=== PATIENT | female | born 1960 | race Caucasian/White ===

== ENCOUNTER 2023-03-24 16:32 | Emergency (ER) | payer OTHER, SELFPAY ==
--- NOTE | ~2023-03-24 | XR_ITS ---
EXAM: XR hip LT 2V w AP pelvis DATE: 03/24/2023 17:14 HISTORY: FELL BACKWARDS 03/21/23. HIT LT BUTTOCK ON WALL.BRUISING. . COMPARISON: None available. FINDINGS: Normal mineralization. No fracture or dislocation. No lytic or blastic lesion. Mild degene rative changes in the bilateral SI joints, hips, and pubic symphysis. Scattered pelvic enthesopathy. Moderate-severe lumbar degenerative disc disease. No erosion or periosteal change. Soft tissue contus ion over the left hip. IMPRESSION: No acute osseous finding in the pelvis or left hip. Reviewed, dictated and finalized at location K. [facility]
--- NOTE | 2023-03-24 16:34 | ED.BACK ---
HPI - Back Pain/Injury General Chief Complaint: Fall Stated Complaint: left side butt cheek injury Source: patient and RN notes reviewed Mode of arrival: ambulatory Limitations: no limitations History of Present Illness HPI Narrative: Patient is a 63-year-old female who presents to the [facility] with complaints left buttock pain. Patient states that she had a fall when she was picking up shoes on the when she bent over and got her feet caught. Patient states that she fell backwards and hit her left hip and buttock on the corner of the wall. Patient states that the bruising continues to get worse. She reports tenderness to the area. She denies any back or tailbone pain. She did not hit her head or lose consciousness during the fall. Related Data Home Medications Medication Instructions Recorded Confirmed buprenorphine 2 mg-naloxone 0.5 mg 1 film buccal DAILY 03/29/19 03/24/23 sublingual film (Suboxone) fluoxetine 20 mg capsule (Prozac) 20 mg PO DAILY 03/29/19 03/24/23 Allergies Allergy/AdvReac Type Severity Reaction Status Date / Time No Known Allergies Allergy Verified 03/24/23 16:47 Review of Systems Review of Systems: CONSTITUTIONAL: Denies fever, chills, or sweats. EYES: Denies visual changes, redness, or discharge. ENT: Denies otalgia and sore throat CARDIOVASCULAR: Denies chest pain, palpitations, or edema. RESPIRATORY: Denies cough or dyspnea. GASTROINTESTINAL: Denies abdominal pain, nausea, vomiting, or diarrhea. GENITOURINARY: Denies dysuria or hematuria. SKIN: Denies rash or itching. Bruising to left buttock. MUSCULOSKELETAL: Denies back pain or myalgia. Left hip and buttock pain. NEUROLOGIC: Denies headache, numbness, or weakness. Pertinent positives per HPI. [facility] Past Medical History Medical History Anxiety Depression Surgical History Surgical History H/O: hysterectomy History of cholecystectomy Social History Social History Smoking status: Former smoker Substance use: former Substance use type: opiates Comments At the time of my signature, I reviewed and agree with the nursing past medical, surgical, social, and family history. There is no relevant family history pertinent to the patient complaint. Exam Narrative: GENERAL: This is a well-nourished, well-developed patient, in no apparent distress. HEAD: normocephalic, atraumatic. EYES: PERRL. Sclera clear/white. Vision is grossly intact. EARS: External ears normal, auditory canals clear and without drainage, TMs normal without perforation. Hearing grossly intact. NOSE: External nose normal with no obvious nasal discharge, nares without redness, no rhinorrhea. THROAT: Mucous membranes moist, posterior pharynx clear. NECK: Neck supple, non-tender without lymphadenopathy, masses or thyromegaly. CARDIOVASCULAR: Regular rate and rhythm without murmurs, gallops, or rubs. RESPIRATORY: Clear to auscultation. Breath sounds equal bilaterally. No wheezes, rales, or rhonchi. GASTROINTESTINAL: Abdomen soft, non-tender, nondistended. Bowel sounds are active. No hepato-splenomegaly, or palpable masses. No guarding. SKIN: warm, intact with no suspicious lesions or rash, good texture and turgor. Significant bruising to left buttock. NEURO: awake, alert, and oriented to person, place and time. There were no obvious focal neurologic abnormalities. EXTREMITIES: Left hip tenderness. However, patient exhibits full range of motion of the hip. Neurovascular and motor function present distally. BACK: Nontender without deformity or crepitance. No flank tenderness. Course Course Level of Care: Express Care Visit Vital Signs Vital signs: Vital Signs Temperature 98.1 F 03/24/23 16:40 Pulse Rate 86 03/24/23 16:40 Respiratory Rate 20 03/24/23 16:40 Blood Pres
[2023-03-24 16:40] VITALS: BP 132/78; PULSE 86; RESP 20; TEMP 36.7; O2SAT 100
[2023-03-24 16:51] VITALS: BP 132/78; PULSE 86; RESP 20; TEMP 36.7; O2SAT 100
== END 2023-03-24 17:39 | disposition home or self-care (01) ==
PROVIDERS: Emergency Provider Nurse Practitioner
DX: S70.02XA Contusion of left hip, initial encounter (principal); W19.XXXA Unspecified fall, initial encounter; F41.9 Anxiety disorder, unspecified; F32.A Depression, unspecified; Z87.891 Personal history of nicotine dependence
CPT/HCPCS: 73502; 99213; G0463